=== PATIENT | male | born 1980 | race Caucasian/White ===

== ENCOUNTER 2018-05-25 03:22 | Emergency (ER) | payer OTHER ==
[2018-05-25 03:29] VITALS: BP 146/99
--- NOTE | 2018-05-25 03:39 | EDPHY ---
H & P Stated Complaint: med clearance & r leg issue Time Seen by Provider: 05/25/18 03:31 HPI/ROS: Chief Complaint: Right leg pain and swelling HPI: 37-year-old male presenting with 2 days of right leg pain redness and swelling. Patient denies a history of similar. No recent injuries. No past medical problems. No periods of immobility. No chest pain or shortness of breath. No fevers or chills. He does have a history of multiple abrasions to his legs from his pet pig's tusks but denies recent injury. ROS: 10 systems were reviewed and were negative except those elements noted in the HPI. PMH: Denies Social History: No smoking Family History: non-contributory Physical Exam: Gen: Awake, Alert, No Distress HEENT: Nose: no rhinorrhea Eyes: PERRLA, EOMI Mouth: Moist mucosa Neck: Supple, no JVD Chest: nontender, lungs clear to auscultation Heart: S1, S2 normal, no murmur Abd: Soft, non-tender, no guarding Back: no CVA tenderness, no midline tenderness Ext: Right lower calf is markedly edematous, erythematous, and warm to touch. He has significant calf tenderness. Skin: Upper extremity exam Neuro: CN II-XII intact, Sensation grossly intact, Strength 5/5 in bilateral upper and lower extremities - Personal History Current Tetanus/Diphtheria Vaccine: Yes Current Tetanus Diphtheria and Acellular Pertussis (TDAP): Yes - Medical/Surgical History Hx Asthma: No Hx Chronic Respiratory Disease: No Hx Diabetes: No Hx Cardiac Disease: No Hx Renal Disease: No Hx Cirrhosis: No Hx Alcoholism: No Hx HIV/AIDS: No Hx Splenectomy or Spleen Trauma: No Other PMH: hypothyroid - Social History Smoking Status: Never smoked Constitutional: Initial Vital Signs Temperature (C) 36.5 C 05/25/18 03:23 Heart Rate 79 05/25/18 03:23 Respiratory Rate 16 05/25/18 03:23 Blood Pressure 146/99 H 05/25/18 03:23 O2 Sat (%) 94 05/25/18 03:23 O2 Delivery Mode Room Air Allergies/Adverse Reactions: No Known Allergies Allergy (Unverified 05/25/18 03:28) Home Medications: Medication Instructions Recorded Cephalexin [Keflex (*)] 500 mg PO Q6H #40 cap 05/25/18 Sulfamethox/Tmp 800/160 mg 1 tab PO BID #20 tab 05/25/18 [Bactrim Ds] Medical Decision Making - Diagnostics Imaging Results: Right lower extremity ultrasound is negative for DVT per Dr. Garcia. ED Course/Re-evaluation: 37-year-old male with right leg swelling redness. Ultrasound is negative for DVT. Symptoms consistent with cellulitis. Will start him on Bactrim and Keflex , follow up with primary care physician in 2-3 days for recheck. Departure - Departure Disposition: Home, Routine, Self-Care Clinical Impression: Cellulitis Condition: Good Instructions: Cellulitis (ED), Cephalexin (By mouth), Sulfamethoxazole/ Trimethoprim (By mouth) Additional Instructions: Follow up with your primary care physician in 2-3 days for recheck. Please take your full course of antibiotics. Return to the emergency department for increasing redness, increasing pain, fevers, chills, or any other concerns. Referrals: Saadia Brooke MD [Medical Doctor] - As per Instructions Prescriptions: Cephalexin [Keflex (*)] 500 mg PO Q6H #40 cap Sulfamethox/Tmp 800/160 mg [Bactrim Ds] 1 tab PO BID #20 tab
[2018-05-25] MEDS ORDERED: CEPHALEXIN 500MG PREPACK#4 BTL TAKEHOME ONE (04:18)
[2018-05-25] MEDS ORDERED: SULFAMET/TMP DS PREPACK#2 BTL TAKEHOME ONE (04:18)
== END 2018-05-25 04:33 | disposition home or self-care (01) ==
LOC: EEVIPCON 03:22
DX: L03.115 Cellulitis of right lower limb (principal)